=== PATIENT | male | born 1980 | race Hispanic/Latino ===

== ENCOUNTER 2023-03-06 17:19 | Emergency (ER) | payer OTHER ==
[~2023-03-06] VITALS: Ht 167.6 cm; Wt 98.0 kg
[2023-03-06] MEDS ORDERED: AMOX1TAB16 PO (19:24)
[2023-03-06] MEDS ORDERED: TETANUS/DIPHTHERIA TOXOID [ADULT] 0.5 ML VIAL IM ONE ×2 (19:30→19:42)
[2023-03-06] MEDS ORDERED: AMOX/CLAV 875/125MG TAB PO ONE ×2 (19:30→19:41)
[2023-03-06 19:50] VITALS: BP 124/84
== END 2023-03-06 19:54 | disposition home or self-care (01) ==
LOC: EDH 17:19
DX: S00.81XA Abrasion of other part of head, initial encounter (principal); Y08.89XA Assault by other specified means, initial encounter; Y93.89 Activity, other specified; Y92.89 Other specified places as the place of occurrence of the external cause; Y99.8 Other external cause status; Z04.3 Encounter for examination and observation following other accident
CPT/HCPCS: 70486; 90471; 90714